=== PATIENT | female | born 1950 | race Caucasian/White ===

== ENCOUNTER → 2019-04-14 | Outpatient (CLI) | payer OTHER ==
[~2019-04-14] MED LIST: ALBU90OI INH; HYDR1TAB94 PO; METR500 PO; NEOM500 PO; Prednisone20 MG PO; SPACE CHAMBER1 EACH MC; Zithromax250 MG PO
[2019-04-16 15:07] LABS: HPV 16 Negative (Negative); HPV 18 Negative (Negative); HPV OTHER HR TYPES Negative (Negative)
== END | disposition home or self-care (01) ==
LOC: LAB SHORT 17:10 → LAB 17:10
PROVIDERS: Obstetrics & Gynecology Gynecology
DX: Z12.4 Encounter for screening for malignant neoplasm of cervix (principal)
CPT/HCPCS: 87624; G0123

== ENCOUNTER 2019-04-22 07:52 | Inpatient (IN) | payer OTHER ==
[~2019-04-22] VITALS: Ht 163 cm; Wt 43.8 kg
[~2019-04-22 07:52] MED LIST changes: -HYDR1TAB94 PO
--- NOTE | 2019-04-22 09:48 | NUR ---
Ambulatory in Day Surgery History, Chart, Medications and Allergies reviewed before start of procedure.Patient confirms NPO status and agrees with scheduled surgery. Patient states colon prep results clear. Patient reports completing Chlorhexadine shower X2 prior to admission to hospital.
--- NOTE | 2019-04-22 15:48 | NUR ---
"EMS INSTRUCTOR | VITAL SIGNS THIS RN RETURNED FROM THE FLOOR TO FINISH CHARTING VITAL SIGNS ON PATIENT, THE MONITOR WAS ACCIDENTLY CLEARED, THUS LOOSING APROXIMATELY 30 MINUTES OF VITAL SIGNS FROM THE MONITOR. THE PATIENTS VITAL SIGNS WERE STABLE THROUGHOUT THEIR STAY IN PACU AND UPON TRANSFER TO FLOOR."
--- NOTE | 2019-04-22 16:19 | NUR ---
ARRIVAL TO UNIT S/P R HEMICOLECTOMY + ENDOMETRIALPOLYPECTOMY. POST OP VS STABLE AND IN PROGRESS. EPIDURAL IN PLACE AND SITE TO MIDBACK IS CDI. DERMATOMES T9-L3 BUT PT ABLE TO WIGGLE TOES AND FLEX FEET. PT REPORTS PAIN IS GETTING MORE TOLERABLE AFTER TITRATING DOSE. PREVENA WOUND VAC TO MID ABD IS CDI. OWENS PATENT WITH CLEAR YELLOW URINE. IVF INFUSING PER ORDERS. OFFERING ICE CHIPS AND WATER. ORIENTED TO ROOM AND CALL LIGHT WITHIN REACH.
--- NOTE | 2019-04-23 02:40 | NUR ---
BLOOD PRESSURE REMAINING IN LOW 90'S FOR SYSTOLIC. EPIDURAL RATE DECREASED BACK DOWN TO 10ML/HR PER ORDERS.
[2019-04-23 03:51] LABS: BASOPHILS ABSOLUTE AUTO 0.02 K/mm3 (0.00-0.23); BASOPHILS PERCENT AUTO 0 % (0-2); EOSINOPHILS ABSOLUTE AUTO 0.06 K/mm3 (0.00-0.68); EOSINOPHILS PERCENT AUTO 1 % (0-6); Hematocrit 28.1 % (33.0-51.0); Hemoglobin 8.3 g/dL (11.5-16.0); IMMATURE GRAN ABSOLUTE AUTO 0.03 K/mm3 (0.00-0.10); IMMATURE GRAN PERCENT AUTO 0 % (0-1); LYMPHOCYTES ABSOLUTE AUTO 1.96 K/mm3 (0.84-5.20); LYMPHOCYTES PERCENT AUTO 19 % (21-46); MONOCYTES ABSOLUTE AUTO 1.01 K/mm3 (0.16-1.47); MONOCYTES PERCENT AUTO 10 % (4-13); Mean Corpuscular HGB 21.2 pg (26.0-34.0); Mean Corpuscular HGB Conc 29.5 g/dL (31.5-36.5); Mean Corpuscular Volume 72 fL (80-100); Mean Platelet Volume 9.2 fL (9.1-12.4); NEUTROPHILS ABSOLUTE AUTO 7.11 K/mm3 (1.96-9.15); NEUTROPHILS PERCENT AUTO 70 % (41-73); Platelet Count 416 K/mm3 (150-400); RDW Coefficient Variation 17.5 % (11.7-14.2); RDW Standard Deviation 45.2 fL (35.1-46.3); Red Blood Cell Count 3.91 M/mm3 (3.80-5.20); White Blood Cell Count 10.19 K/mm3 (4.00-11.30)
[2019-04-23 04:05] LABS: Anion Gap 8 mmol/L (6-16); Blood Urea Nitrogen 11 mg/dL (8-24); Bun/Creatinine Ratio 11.7 (12.0-20.0); CO2, Blood 23 mmol/L (21-32); Calcium, Blood 7.8 mg/dL (8.5-10.1); Chloride, Blood 110 mmol/L (98-108); Creatinine, Blood 0.94 mg/dL (0.40-1.00); Glomerular Filtration Rate >60 (60-); Glucose, Blood 71 mg/dL (70-99); Potassium, Blood 3.8 mmol/L (3.5-5.5); Sodium, Blood 141 mmol/L (136-145)
--- NOTE | 2019-04-23 04:49 | NUR ---
SHIFT SUMMARY: PT POD #1 FOR RIGHT ALPHONSE COLECTOMY AND ENDOMETRIAL POLYPECTOMY. A&O X4 T/O SHIFT. EPIDURAL TO MID BACK CDI. PT RATING PAIN 0/10. BP LOW T/O SHIFT- DOSE TITRATED BACK DOWN TO 10ML/HR PER TITRATING ORDERS. PT REPORTS N/T IN BILATERAL FEET. PT REPORTS MORE STRENGTH IN RIGHT LEG. ABLE TO WIGGLE TOES. O2 STABLE ON ROOM AIR. PT MICKY CLEAR LIQ DIET. DENIES N/V. DENIES PASSING FLATUS. FLUIDS INFUSING PER ORDERS. MINIMAL AMOUNT OF URINE NOTED IN OWENS. SEDIMENT OBSERVED IN CATHETER. IRRIGATED WITH 30CC. OWENS NOW DRAINING ADEQUATE AMOUNT.
--- NOTE | 2019-04-23 07:33 | NUR ---
04/23/19 0733 Olga Tucker VERIFICATIONS: EDIT CHART.
--- NOTE | 2019-04-23 17:44 | NUR ---
SUMMARY PATIENT REPORTS NO PAIN, ONLY SLIGHT ABDOMINAL "DISCOMFORT". EPIDURAL TAPED IN PLACE. PATIENT MOVES BILATERAL LOWER LEGS BUT REPORTS LEFT LEG FEELS SLIGHTLY WEAKER THAN RIGHT. PATIENT MEDICATED X1 FOR NAUSEA WITH GOOD RELIEF. TOLERATING CLEAR LIQUIDS. PATIENT BELCHING OCCASSIONALLY. PREVENA IN PLACE MIDLINE, DRESSING DRY AND INTACT
--- NOTE | 2019-04-24 00:47 | NUR ---
PT ON CONT EPIDURAL FENT 10 MCG HR AND BUPIVICANE CONTINUES TO DENY PAIN, GOOD STRENGHTS BILAT LE SLIGHT TINGLING ABLE TO MOVE WELL. hAS T 100.4 AND ENCOURAGED IS AND COUGH DEEP BREATHE. DOES IS POORLY ONLY ABLE TO GET TO LOW LEVEL. SATS 86% ON ROOM AIR, OXYGEN 2 L NC APPLIED. WILL APPLY CONT PULSE OXIMETER FOR CONTINOUS EPIDURAL.
--- NOTE | 2019-04-24 05:43 | NUR ---
68 YEAR OLD fEMALE WITH RT HEMICOLECTOMY FOR INTUSSCEPTION AND POLYPS UTERINE WITH PT REPORTING BENIGN FINDINGS. PT WILL BE ADVANCEd FROM CLEAR LIQUID TO FULL LIQUID THIS am. She has hx of anemia and malnutrition with wt loss. She has been a smoker and has poor lung function. Room air sats below 88%. 2 l nc and sats 93%. Poor use of incentive spirometry. encouraged CDB wak cough. Bowel sounds active. Woods cath patent, epidural fent 10 mcg per hour with bupivicane 0.1 infusing per epidural with good return of LE strenght and use. Epidural checks per protocol.
--- NOTE | 2019-04-24 18:28 | NUR ---
SHIFT SUMMARY PAIN HAS BEEN MANAGED WITH EPIDURAL THIS SHIFT. PT HAS BEEN OOB TO CHAIR FOR MEALS. PT TOLERATING FULL LIQUIDS. PLAN EPIDURAL REMOVAL TOMORROW. VSS. WILL MONITOR UNTIL REPORT TO ONCOMING RN.
--- NOTE | 2019-04-25 06:31 | NUR ---
POD 3 S/P ALPHONSE COLECTOMY, PT VSS T/O NIGHT. DRESSING CDI. PAIN MGD W/EPIDURAL W/REP RELIEF. PT HAD NO C/O N/V, REP NO FLATUS YET. PT CONT TO C/O N/T TO BLE R/T EPIDURAL, REP NO CHANGES IN SENSATION. PT UP W/FWW+2 ASSIST R/T WEAKNESS/NUMBNESS IN BLE. PLAN TO D/C EPIDURAL THIS AM. PT USING CALL LIGHT FOR ASSISTANCE, WILL CONT TO MONITOR UNTIL REP GIVEN TO ONCOMING RN.
--- NOTE | 2019-04-25 08:10 | NUR ---
DERMATOME LEVELS PT REPORTS SHE IS HAVING ADEQUATE PAIN MANAGEMENT. PT REPORTED NUMBNESS/TINGLING TO BLE. PT REPORTS MORE NUMBNESS TO HER L LEG THAN HER R LEG. PT IS ABLE TO MOVE HER EXTREMITIES. SHE REPORTS FEELING WEAK WHEN ATTEMPTING TO STAND. PT REMAINING IN BED R/T LOWER EXTREMITY NUMBNESS UNTIL ANESTHESIOLOGIST REMOVES EPIDURAL.
--- NOTE | 2019-04-25 11:32 | NUR ---
DR. IRAIDA STEVEN WILL CONTINUE TO MONITOR.
--- NOTE | 2019-04-25 13:15 | NUR ---
DR. YOON ROUNDED AND REMOVED EPIDURAL CATHETER. PT REPORTS PAIN IS MANAGED AND NUMBNESS IS DECREASING IN BLE. WILL CONTINUE TO MONITOR. EPIDURAL PUMP TURNED OFF AT APPROXIMATLY 1100.
--- NOTE | 2019-04-25 19:02 | NUR ---
SHIFT SUMMARY EPIDURAL REMOVED EARLY THIS AFTERNOON. PT HAS HAD MINIMAL PAIN SINCE EPIDURAL REMOVAL; TORADOL GIVEN X1 FOR PAIN. PT IS A 1 PERSON ASSIST WITH GAIT BELT AND WALKER. PT WAS UNABLE TO AMBULATE PRIOR TO EPIDURAL REMOVAL R/T NUMBNESS TO BLE. PT IS TOLERATING REGULAR DIET. VSS. REPORT GIVEN TO BRANDEN GARCIA.
--- NOTE | 2019-04-26 06:30 | NUR ---
SHIFT SUMMARY LYING IN SEMI FOWLERS WITH EYES CLOSED. HAS RESTED WELL THIS SHIFT. ADEQUATE OUTPUT SINCE REMOVAL OF EPIDURAL AND OWENS CATH. RETURN OF BASELINE SENSATION NOTED. DENIES PAIN, DISCOMFORT, OR FURTHER NEEDS AT THIS TIME. SAFETY MEASURES IN PLACE. WILL GIVE HAND OFF TO ONCOMING SHIFT USING SBAR.
[2019-04-26] MEDS ORDERED: HYDR1TAB94 PO (10:56)
== END 2019-04-26 12:51 | disposition home or self-care (01) | DRG 330 ==
LOC: SURS 07:52 → PRE IP 09:45 → SURS 15:09
PROVIDERS: Obstetrics & Gynecology Gynecology; ADMIT Surgery
PROC: 0DTF0ZZ Resection of Right Large Intestine, Open Approach (ICD-10-PCS; 2019-04-22)
PROC: 0UDB8ZX Extraction of Endometrium, Via Natural or Artificial Opening Endoscopic, Diagnostic (ICD-10-PCS; principal; 2019-04-22 09:45)
PROC: 0UDB8ZX Extraction of Endometrium, Via Natural or Artificial Opening Endoscopic, Diagnostic (ICD-10-PCS; 2019-04-22 09:45)
DX: K56.1 Intussusception (principal); E44.0 Moderate protein-calorie malnutrition; Z68.1 Body mass index [BMI] 19.9 or less, adult; N84.0 Polyp of corpus uteri; D64.9 Anemia, unspecified; F17.210 Nicotine dependence, cigarettes, uncomplicated
CPT/HCPCS: 36415; 80048; 85025; 88305; 88309; 94762; J0330; J1650; J1885; J2250; J2405; J2543; J2704; J2710; J3010; J7120; V2790

== ENCOUNTER 2019-05-21 05:58 | Day surgery (SDC) | payer OTHER ==
[~2019-05-21] VITALS: Ht 160 cm; Wt 46.4 kg
[~2019-05-21 05:58] MED LIST changes: +HYDR1TAB94 PO
--- NOTE | 2019-05-21 06:38 | NUR ---
Exp. Rhonchi auscultated to RUL anterior and LLL anterior, clear with cough.
--- NOTE | 2019-05-21 06:38 | NUR ---
History, Chart, Medications and Allergies reviewed before start of procedure. Patient confirms NPO status and agrees with scheduled surgery. Patient States Post-Procedure ride home has been arranged with her .
--- NOTE | 2019-05-21 06:39 | NUR ---
IRON AND PREDNISONE REMOVED FROM ALLERGY LIST PER PATIENT REQUEST. SHE DENIES ALLERGIES TO BOTH IRON AND PREDNISONE.
--- NOTE | 2019-05-21 09:35 | NUR ---
Patient up to Ambulate independently. Gait steady. Discharge instructions reviewed with patient. Patient verbalizes understanding. Copy given to patient to take home. Patient States Post-Procedure ride home has been arranged. Discharged via wheelchair to private car for ride home.
== END 2019-05-21 22:38 | disposition home or self-care (01) ==
LOC: ORSCMMR 05:58 → ORD 07:30 → ORSCMMR 22:38
PROVIDERS: Surgery
PROC: 05HM33Z Insertion of Infusion Device into Right Internal Jugular Vein, Percutaneous Approach (ICD-10-PCS; principal; 2019-05-21 07:30)
PROC: B5131ZA Fluoroscopy of Right Jugular Veins using Low Osmolar Contrast, Guidance (ICD-10-PCS; principal; 2019-05-21 07:30)
DX: C18.2 Malignant neoplasm of ascending colon (principal); J44.9 Chronic obstructive pulmonary disease, unspecified; F17.210 Nicotine dependence, cigarettes, uncomplicated
CPT/HCPCS: 77001; C1788; J0690; J1100; J1642; J2250; J2405; J2704; J3010; J7120

== ENCOUNTER 2019-11-11 13:54 | Emergency (ER) | payer OTHER ==
[~2019-11-11] VITALS: Ht 162.6 cm; Wt 47.6 kg
[2019-11-11 14:32] LABS: BASOPHILS ABSOLUTE AUTO 0.05 K/mm3 (0.00-0.23); BASOPHILS PERCENT AUTO 0 % (0-2); EOSINOPHILS ABSOLUTE AUTO 0.04 K/mm3 (0.00-0.68); EOSINOPHILS PERCENT AUTO 0 % (0-6); Hematocrit 47.5 % (33.0-51.0); Hemoglobin 15.4 g/dL (11.5-16.0); IMMATURE GRAN ABSOLUTE AUTO 0.05 K/mm3 (0.00-0.10); IMMATURE GRAN PERCENT AUTO 0 % (0-1); LYMPHOCYTES ABSOLUTE AUTO 2.53 K/mm3 (0.84-5.20); LYMPHOCYTES PERCENT AUTO 22 % (21-46); MONOCYTES ABSOLUTE AUTO 1.65 K/mm3 (0.16-1.47); MONOCYTES PERCENT AUTO 14 % (4-13); Mean Corpuscular HGB 32.2 pg (26.0-34.0); Mean Corpuscular HGB Conc 32.4 g/dL (31.5-36.5); Mean Corpuscular Volume 99 fL (80-100); Mean Platelet Volume 10.4 fL (9.1-12.4); NEUTROPHILS ABSOLUTE AUTO 7.28 K/mm3 (1.96-9.15); NEUTROPHILS PERCENT AUTO 63 % (41-73); Platelet Count 117 K/mm3 (150-400); RDW Coefficient Variation 15.1 % (11.7-14.2); RDW Standard Deviation 55.6 fL (35.1-46.3); Red Blood Cell Count 4.78 M/mm3 (3.80-5.20)
[2019-11-11 15:00] LABS: Alanine Aminotransfer (ALT/SGP 28 U/L (12-78); Albumin, Blood 3.4 g/dL (3.4-5.0); Albumin/Globulin Ratio 0.8 (0.8-1.8); Alk Phos 172 U/L (50-136); Anion Gap 6 mmol/L (6-16); Aspartate Aminotrans (AST/SGOT 28 U/L (12-37); Bilirubin, Total 0.5 mg/dL (0.1-1.0); Blood Urea Nitrogen 13 mg/dL (8-24); Bun/Creatinine Ratio 17.6 (12.0-20.0); CO2, Blood 24 mmol/L (21-32); Calcium, Blood 8.7 mg/dL (8.5-10.1); Chloride, Blood 110 mmol/L (98-108); Creatinine, Blood 0.74 mg/dL (0.40-1.00); Globulin, Blood 4.3 g/dL (2.2-4.0); Glomerular Filtration Rate >60 (60-); Glucose, Blood 88 mg/dL (70-99); Potassium, Blood 3.9 mmol/L (3.5-5.5); Sodium, Blood 140 mmol/L (136-145); Total Protein, Blood 7.7 g/dL (6.4-8.2); Troponin I <0.015 ng/mL (0.000-0.040)
[2019-11-11] MEDS ORDERED: Norco 5-325 Ta1 EACH PO (16:28)
[2019-11-11] MEDS ORDERED: XARELTO15 MG PO (16:28)
== END 2019-11-11 17:26 | disposition home or self-care (01) ==
LOC: ER 13:54
PROVIDERS: Physician Assistant
DX: I26.99 Other pulmonary embolism without acute cor pulmonale (principal); I27.82 Chronic pulmonary embolism; F17.210 Nicotine dependence, cigarettes, uncomplicated
CPT/HCPCS: 71046; 71260; 80053; 84484; 85025; 93005; 93010; 96374-59; 99285-25; J1885; Q9967

== ENCOUNTER → 2020-02-24 | Outpatient (CLI) | payer OTHER ==
[~2020-02-24] MED LIST changes: +Norco 5-325 Ta1 EACH PO; +XARELTO15 MG PO
[2020-02-24 20:23] LABS: Campylobacter Sp Not Detected (NOT DETECT)
[2020-02-24 20:24] LABS: Adenovirus F 40/41 Not Detected (NOT DETECT); Astrovirus Not Detected (NOT DETECT); Cryptosporidium Not Detected (NOT DETECT); Cyclospora Cayetanensis Not Detected (NOT DETECT); E. Coli O157 Not Detected (NOT DETECT); Entamoeba Histolytica Not Detected (NOT DETECT); Enteroaggregative E. coli-EAEC Not Detected (NOT DETECT); Enteropathogenic E. coli-EPEC Detected (NOT DETECT); Enterotoxigenic E. coli-ETEC Not Detected (NOT DETECT); Giardia Lamblia Not Detected (NOT DETECT); Norovirus GI/GII Not Detected (NOT DETECT); Plesiomonas Shigelloides Not Detected (NOT DETECT); Rotavirus A Not Detected (NOT DETECT); Salmonella Sp Not Detected (NOT DETECT); Sapovirus Not Detected (NOT DETECT); Shiga Toxin-prod E. coli-STEC Not Detected (NOT DETECT); Shigella/Enteroin E. coli-EIEC Not Detected (NOT DETECT); Vibrio Cholerae Not Detected (NOT DETECT); Vibrio Sp Not Detected (NOT DETECT); Yersinia Enterocolitica Not Detected (NOT DETECT)
== END | disposition home or self-care (01) ==
LOC: LAB 12:50 → LAB SHORT 12:50
PROVIDERS: Internal Medicine Gastroenterology
DX: R19.7 Diarrhea, unspecified (principal)
CPT/HCPCS: 0097U; 83993

== ENCOUNTER 2020-11-10 08:55 | Day surgery (SDC) | payer OTHER ==
[~2020-11-10] VITALS: Ht 165.1 cm; Wt 45.2 kg
--- NOTE | 2020-11-10 10:07 | NUR ---
11/10/20 Amber Jovel 1 TRY RIGHT HAND VALVE 2 TRY RIGHT UPPER ARM INFLATRATED
--- NOTE | 2020-11-10 12:07 | NUR ---
11/10/[address] TO CALL IN RX FOR PT. FOR PREDISONE.
== END 2020-11-10 11:40 | disposition home or self-care (01) ==
LOC: ORSCSDS 08:55
PROVIDERS: Internal Medicine Gastroenterology
PROC: 0DBL8ZX Excision of Transverse Colon, Via Natural or Artificial Opening Endoscopic, Diagnostic (ICD-10-PCS; principal; 2020-11-10 10:45)
PROC: 0DBP8ZX Excision of Rectum, Via Natural or Artificial Opening Endoscopic, Diagnostic (ICD-10-PCS; principal; 2020-11-10 10:45)
PROC: 0DBG8ZX Excision of Left Large Intestine, Via Natural or Artificial Opening Endoscopic, Diagnostic (ICD-10-PCS; principal; 2020-11-10 10:45)
PROC: 0DBB8ZX Excision of Ileum, Via Natural or Artificial Opening Endoscopic, Diagnostic (ICD-10-PCS; principal; 2020-11-10 10:45)
DX: K50.90 Crohn's disease, unspecified, without complications (principal); K64.4 Residual hemorrhoidal skin tags; K64.8 Other hemorrhoids; R19.7 Diarrhea, unspecified; Z85.038 Personal history of other malignant neoplasm of large intestine; Z86.010 Personal history of colon polyps; F17.210 Nicotine dependence, cigarettes, uncomplicated; Z79.01 Long term (current) use of anticoagulants; Z79.899 Other long term (current) drug therapy
CPT/HCPCS: 88305; 88312; J2704; J7120

== ENCOUNTER → 2021-05-09 | Outpatient (CLI) | payer OTHER ==
[2021-05-09 18:43] LABS: BASOPHILS ABSOLUTE AUTO 0.08 K/mm3 (0.00-0.23); BASOPHILS PERCENT AUTO 1 % (0-2); EOSINOPHILS ABSOLUTE AUTO 0.11 K/mm3 (0.00-0.68); EOSINOPHILS PERCENT AUTO 2 % (0-6); Hematocrit 45.1 % (33.0-51.0); Hemoglobin 14.6 g/dL (11.5-16.0); IMMATURE GRAN ABSOLUTE AUTO 0.04 K/mm3 (0.00-0.10); IMMATURE GRAN PERCENT AUTO 1 % (0-1); LYMPHOCYTES ABSOLUTE AUTO 1.85 K/mm3 (0.84-5.20); LYMPHOCYTES PERCENT AUTO 24 % (21-46); MONOCYTES ABSOLUTE AUTO 0.72 K/mm3 (0.16-1.47); MONOCYTES PERCENT AUTO 10 % (4-13); Mean Corpuscular HGB 31.5 pg (26.0-34.0); Mean Corpuscular HGB Conc 32.4 g/dL (31.5-36.5); Mean Corpuscular Volume 97 fL (80-100); Mean Platelet Volume 10.6 fL (9.1-12.4); NEUTROPHILS ABSOLUTE AUTO 4.78 K/mm3 (1.96-9.15); NEUTROPHILS PERCENT AUTO 63 % (41-73); Platelet Count 299 K/mm3 (150-400); RDW Coefficient Variation 15.2 % (11.7-14.2); RDW Standard Deviation 54.5 fL (35.1-46.3); Red Blood Cell Count 4.64 M/mm3 (3.80-5.20); White Blood Cell Count 7.58 K/mm3 (4.00-11.30)
[2021-05-09 19:17] LABS: Alanine Aminotransfer (ALT/SGP 23 U/L (12-78); Albumin, Blood 3.8 g/dL (3.4-5.0); Albumin/Globulin Ratio 0.9 (0.8-1.8); Alk Phos 81 U/L (50-136); Anion Gap 5 mmol/L (6-16); Aspartate Aminotrans (AST/SGOT 17 U/L (12-37); Bilirubin, Total 0.4 mg/dL (0.1-1.0); Blood Urea Nitrogen 14 mg/dL (8-24); Bun/Creatinine Ratio 18.5 (12.0-20.0); CO2, Blood 26 mmol/L (21-32); Calcium, Blood 9.3 mg/dL (8.5-10.1); Chloride, Blood 108 mmol/L (98-108); Creatinine, Blood 0.76 mg/dL (0.40-1.00); Globulin, Blood 4.1 g/dL (2.2-4.0); Glomerular Filtration Rate >60 (60-); Glucose, Blood 81 mg/dL (70-99); Potassium, Blood 4.2 mmol/L (3.5-5.5); Sodium, Blood 139 mmol/L (136-145); Thyroxine (T4) 11.1 ug/dL (4.8-13.9); Total Protein, Blood 7.9 g/dL (6.4-8.2)
[2021-05-09 19:24] LABS: Thyroid Stimulating Hormone 0.907 uIU/mL (0.360-4.800)
== END | disposition home or self-care (01) ==
LOC: LAB SHORT 15:21 → LAB 15:21
PROVIDERS: Family Medicine
DX: E03.9 Hypothyroidism, unspecified (principal); R53.83 Other fatigue
CPT/HCPCS: 80053; 84436; 84443; 85025

== ENCOUNTER 2021-07-20 05:44 | Day surgery (SDC) | payer OTHER ==
[~2021-07-20] VITALS: Wt 45.7 kg
[2021-07-20] MEDS ORDERED: Azasan100 MG (13:48)
[2021-07-20] MEDS ORDERED: PRED5 PO (13:49)
== END 2021-07-20 16:15 | disposition home or self-care (01) ==
LOC: ATC 05:44
DX: K50.90 Crohn's disease, unspecified, without complications (principal); F17.210 Nicotine dependence, cigarettes, uncomplicated; Z23 Encounter for immunization; Z90.49 Acquired absence of other specified parts of digestive tract; Z79.52 Long term (current) use of systemic steroids; Z79.899 Other long term (current) drug therapy; Z79.01 Long term (current) use of anticoagulants; Z85.038 Personal history of other malignant neoplasm of large intestine
CPT/HCPCS: 96375; 96413; 96415; A9270; J1720; J1745; J7050

== ENCOUNTER 2021-08-03 03:05 | Day surgery (SDC) | payer OTHER ==
[~2021-08-03] VITALS: Wt 46.6 kg
[~2021-08-03 03:05] MED LIST changes: +Azasan100 MG; +PRED5 PO
--- NOTE | 2021-08-03 09:39 | NUR ---
PATIENT DECLINED PRE-MEDS SINCE SHE DID WELL WITH HER LAST INFUSION OF REMICADE.
== END 2021-08-03 11:42 | disposition home or self-care (01) ==
LOC: ATC 03:05
DX: K50.80 Crohn's disease of both small and large intestine without complications (principal); F17.210 Nicotine dependence, cigarettes, uncomplicated; Z85.038 Personal history of other malignant neoplasm of large intestine
CPT/HCPCS: J1745; J7050

== ENCOUNTER 2021-08-31 05:30 | Day surgery (SDC) | payer OTHER ==
[~2021-08-31] VITALS: Wt 47.2 kg
--- NOTE | 2021-08-31 09:28 | NUR ---
PT DECLINES PRE MEDS
== END 2021-08-31 11:34 | disposition home or self-care (01) ==
LOC: ATC 05:30
DX: K50.80 Crohn's disease of both small and large intestine without complications (principal); F17.210 Nicotine dependence, cigarettes, uncomplicated; Z79.01 Long term (current) use of anticoagulants; Z88.2 Allergy status to sulfonamides
CPT/HCPCS: J1745; J7050

== ENCOUNTER 2021-10-13 10:05 | Emergency (ER) | payer OTHER ==
[~2021-10-13] VITALS: Ht 165.1 cm; Wt 45.4 kg
[2021-10-13 11:38] LABS: BASOPHILS ABSOLUTE AUTO 0.05 K/mm3 (0.00-0.23); BASOPHILS PERCENT AUTO 1 % (0-2); EOSINOPHILS ABSOLUTE AUTO 0.05 K/mm3 (0.00-0.68); EOSINOPHILS PERCENT AUTO 1 % (0-6); Hematocrit 45.9 % (33.0-51.0); Hemoglobin 15.1 g/dL (11.5-16.0); IMMATURE GRAN ABSOLUTE AUTO 0.01 K/mm3 (0.00-0.10); IMMATURE GRAN PERCENT AUTO 0 % (0-1); LYMPHOCYTES ABSOLUTE AUTO 1.07 K/mm3 (0.84-5.20); LYMPHOCYTES PERCENT AUTO 19 % (21-46); MONOCYTES ABSOLUTE AUTO 1.07 K/mm3 (0.16-1.47); MONOCYTES PERCENT AUTO 19 % (4-13); Mean Corpuscular HGB 33.2 pg (26.0-34.0); Mean Corpuscular HGB Conc 32.9 g/dL (31.5-36.5); Mean Corpuscular Volume 101 fL (80-100); Mean Platelet Volume 9.9 fL (9.1-12.4); NEUTROPHILS ABSOLUTE AUTO 3.35 K/mm3 (1.96-9.15); NEUTROPHILS PERCENT AUTO 60 % (41-73); Platelet Count 204 K/mm3 (150-400); RDW Coefficient Variation 13.5 % (11.7-14.2); RDW Standard Deviation 50.6 fL (35.1-46.3); Red Blood Cell Count 4.55 M/mm3 (3.80-5.20)
[2021-10-13 11:56] LABS: Alanine Aminotransfer (ALT/SGP 21 U/L (12-78); Albumin, Blood 3.9 g/dL (3.4-5.0); Albumin/Globulin Ratio 0.8 (0.8-1.8); Alk Phos 63 U/L (50-136); Anion Gap 5 mmol/L (6-16); Aspartate Aminotrans (AST/SGOT 19 U/L (12-37); Blood Urea Nitrogen 9 mg/dL (8-24); Bun/Creatinine Ratio 12.1 (12.0-20.0); CO2, Blood 29 mmol/L (21-32); Calcium, Blood 9.5 mg/dL (8.5-10.1); Chloride, Blood 104 mmol/L (98-108); Creatinine, Blood 0.75 mg/dL (0.40-1.00); Globulin, Blood 4.6 g/dL (2.2-4.0); Glomerular Filtration Rate >60 (60-); Glucose, Blood 97 mg/dL (70-99); Potassium, Blood 3.9 mmol/L (3.5-5.5); Sodium, Blood 138 mmol/L (136-145); Total Protein, Blood 8.5 g/dL (6.4-8.2); Troponin I <0.015 ng/mL (0.000-0.040)
[2021-10-13] MEDS ORDERED: ALBU90OI INH (14:17)
[2021-10-13 14:42] LABS: Influenza A, PCR NEGATIVE (NEGATIVE); Influenza B, PCR NEGATIVE (NEGATIVE); Resp Syncytial Virus, PCR NEGATIVE (NEGATIVE); SARS-Cov-2 (COVID-19) PCR, MMC NEGATIVE (NEGATIVE)
== END 2021-10-13 14:31 | disposition home or self-care (01) ==
LOC: ER 10:05
PROVIDERS: Student in an Organized Health Care Education/Training Program
DX: R06.02 Shortness of breath (principal); R05.9 Cough, unspecified; Z88.2 Allergy status to sulfonamides; Z87.891 Personal history of nicotine dependence; Z20.822 Contact with and (suspected) exposure to COVID-19
CPT/HCPCS: 0241U; 71045; 80053; 83880; 84484; 85025; 93005; 93010; 94640; 99284-25

== ENCOUNTER 2021-10-26 02:24 | Day surgery (SDC) | payer OTHER ==
[~2021-10-26] VITALS: Wt 46.4 kg
== END 2021-10-26 11:43 | disposition home or self-care (01) ==
LOC: ATC 02:24
DX: K50.80 Crohn's disease of both small and large intestine without complications (principal)
CPT/HCPCS: A9270; J1720; J1745; J7050

== ENCOUNTER 2021-12-21 00:16 | Day surgery (SDC) | payer OTHER | END 2021-12-21 11:49 | disposition home or self-care (01) | LOC: ATC 00:16 | DX: K50.80 Crohn's disease of both small and large intestine without complications (principal); F17.210 Nicotine dependence, cigarettes, uncomplicated | CPT/HCPCS: A9270; J1720; J7050; Q5103 ==

== ENCOUNTER 2022-04-12 00:58 | Day surgery (SDC) | payer OTHER ==
[~2022-04-12] VITALS: Wt 45.9 kg
[~2022-04-12 00:58] MED LIST changes: +INFLECTRA100 MG IV; +NEURONTIN300 MG PO
== END 2022-04-12 11:46 | disposition home or self-care (01) ==
LOC: ATC 00:58
DX: K50.80 Crohn's disease of both small and large intestine without complications (principal)
CPT/HCPCS: 96413; 96415; J7050; Q5103

== ENCOUNTER 2022-07-01 09:18 | Day surgery (SDC) | payer OTHER ==
[~2022-07-01] VITALS: Ht 177.8 cm; Wt 45.5 kg
== END 2022-07-01 11:53 | disposition home or self-care (01) ==
LOC: ORSCSDS 09:18
PROVIDERS: Internal Medicine Gastroenterology
PROC: 0DBN8ZX Excision of Sigmoid Colon, Via Natural or Artificial Opening Endoscopic, Diagnostic (ICD-10-PCS; principal; 2022-07-01 10:45)
PROC: 0DBE8ZX Excision of Large Intestine, Via Natural or Artificial Opening Endoscopic, Diagnostic (ICD-10-PCS; principal; 2022-07-01 10:45)
DX: K50.90 Crohn's disease, unspecified, without complications (principal); Z86.010 Personal history of colon polyps; Z85.038 Personal history of other malignant neoplasm of large intestine; K63.5 Polyp of colon; K57.30 Diverticulosis of large intestine without perforation or abscess without bleeding; F17.210 Nicotine dependence, cigarettes, uncomplicated; Z79.899 Other long term (current) drug therapy; Z79.01 Long term (current) use of anticoagulants
CPT/HCPCS: 88305; J2704; J7120

== ENCOUNTER 2022-08-02 00:13 | Day surgery (SDC) | payer OTHER ==
[~2022-08-02] VITALS: Wt 48.0 kg
[2022-08-02] MEDS ORDERED: INFLECTRA100 MG IV (10:40)
[2022-08-02] MEDS ORDERED: PREG50 PO (10:41)
== END 2022-08-02 11:38 | disposition home or self-care (01) ==
LOC: ATC 00:13
DX: K50.80 Crohn's disease of both small and large intestine without complications (principal)
CPT/HCPCS: 96413; 96415; A9270; J1720; J7050; Q5103

== ENCOUNTER 2022-09-27 02:25 | Day surgery (SDC) | payer OTHER ==
[~2022-09-27 02:25] MED LIST changes: +PREG50 PO
== END 2022-09-27 11:40 | disposition home or self-care (01) ==
LOC: ATC 02:25
DX: K50.80 Crohn's disease of both small and large intestine without complications (principal)
CPT/HCPCS: J7050; Q5103

== ENCOUNTER 2023-01-17 01:42 | Day surgery (SDC) | payer OTHER ==
[~2023-01-17] VITALS: Wt 51.9 kg
[2023-01-17 09:03] VITALS: BP 127/74
== END 2023-01-17 11:53 | disposition home or self-care (01) ==
LOC: ATC 01:42
DX: K50.80 Crohn's disease of both small and large intestine without complications (principal)
CPT/HCPCS: 96413; 96415; J7050; Q5103

== ENCOUNTER 2023-05-12 01:19 | Day surgery (SDC) | payer OTHER ==
[2023-05-12 13:34] VITALS: BP 106/65
[2023-05-12] MEDS ORDERED: IMURAN50 MG PO (13:40)
[2023-05-12] MEDS ORDERED: DONEPEZIL HCL5 M2 PO (13:41)
== END 2023-05-12 16:22 | disposition home or self-care (01) ==
LOC: ATC 01:19
DX: K50.80 Crohn's disease of both small and large intestine without complications (principal)
CPT/HCPCS: 96413; 96415; J7050; Q5103

== ENCOUNTER 2023-07-09 02:23 | Day surgery (SDC) | payer OTHER ==
[~2023-07-09 02:23] MED LIST changes: +DONEPEZIL HCL5 M2 PO; +IMURAN50 MG PO
[2023-07-09 09:22] VITALS: BP 107/70
== END 2023-07-09 12:01 | disposition home or self-care (01) ==
LOC: ATC 02:23
DX: K50.80 Crohn's disease of both small and large intestine without complications (principal); Z88.2 Allergy status to sulfonamides; Z85.038 Personal history of other malignant neoplasm of large intestine
CPT/HCPCS: 96413; 96415; J7050; Q5103

== ENCOUNTER 2023-09-03 01:02 | Day surgery (SDC) | payer OTHER ==
[2023-09-03] MEDS ORDERED: Ventolin/Prove6.7 GM INH (09:02)
[2023-09-03 09:03] VITALS: BP 136/73
== END 2023-09-03 11:55 | disposition home or self-care (01) ==
LOC: ATC 01:02
DX: K50.80 Crohn's disease of both small and large intestine without complications (principal); Z79.899 Other long term (current) drug therapy; Z88.2 Allergy status to sulfonamides; Z85.038 Personal history of other malignant neoplasm of large intestine
CPT/HCPCS: 96413; 96415; J7050; Q5103

== ENCOUNTER 2023-10-29 00:03 | Day surgery (SDC) | payer OTHER ==
[~2023-10-29 00:03] MED LIST changes: +Ventolin/Prove6.7 GM INH
[2023-10-29] MEDS ORDERED: NS IV SCH (06:00)
[2023-10-29] MEDS ORDERED: INFLIXIMAB DYYB IV SCH (06:00)
[2023-10-29 13:50] VITALS: BP 149/71
== END 2023-10-29 16:30 | disposition home or self-care (01) ==
LOC: ATC 00:03
DX: K50.80 Crohn's disease of both small and large intestine without complications (principal); Z85.038 Personal history of other malignant neoplasm of large intestine
CPT/HCPCS: 96413; 96415; J7050; Q5103

== ENCOUNTER → 2024-03-27 | Outpatient (CLI) | payer OTHER | END | disposition home or self-care (01) | LOC: LAB 17:48 → LAB SHORT 17:48 | DX: R31.9 Hematuria, unspecified (principal); R30.0 Dysuria; R35.0 Frequency of micturition | CPT/HCPCS: 87086 ==

== ENCOUNTER → 2024-04-06 | Outpatient (CLI) | payer OTHER | LOC: LAB SHORT 17:32 → LAB 17:32 | DX: N39.0 Urinary tract infection, site not specified (principal) | CPT/HCPCS: 87086 ==

== ENCOUNTER 2024-06-17 02:33 | Day surgery (SDC) | payer OTHER ==
[~2024-06-17] VITALS: Wt 45.9 kg
[2024-06-17] MEDS ORDERED: INFLIXIMAB DYYB IV SCH (06:00)
[2024-06-17] MEDS ORDERED: NS IV SCH (06:00)
[2024-06-17 08:55] VITALS: BP 138/78
== END 2024-06-17 11:35 | disposition home or self-care (01) ==
LOC: ATC 02:33
DX: K50.80 Crohn's disease of both small and large intestine without complications (principal); F17.210 Nicotine dependence, cigarettes, uncomplicated; Z85.038 Personal history of other malignant neoplasm of large intestine; Z79.899 Other long term (current) drug therapy; Z88.2 Allergy status to sulfonamides
CPT/HCPCS: 96413; 96415; J7050; Q5103

== ENCOUNTER 2024-08-13 04:20 | Day surgery (SDC) | payer OTHER ==
[2024-08-13] MEDS ORDERED: INFLIXIMAB DYYB IV SCH (06:00)
[2024-08-13] MEDS ORDERED: NS IV SCH (06:00)
[2024-08-13 08:35] VITALS: BP 115/72
== END 2024-08-13 11:10 | disposition home or self-care (01) ==
LOC: ATC 04:20
DX: K50.80 Crohn's disease of both small and large intestine without complications (principal); F17.210 Nicotine dependence, cigarettes, uncomplicated; Z79.899 Other long term (current) drug therapy; Z88.2 Allergy status to sulfonamides; Z98.51 Tubal ligation status; Z90.710 Acquired absence of both cervix and uterus; Z90.49 Acquired absence of other specified parts of digestive tract; Z85.038 Personal history of other malignant neoplasm of large intestine
CPT/HCPCS: 96413; 96415; J7050; Q5103

== ENCOUNTER 2024-10-08 02:51 | Day surgery (SDC) | payer OTHER ==
[~2024-10-08] VITALS: Wt 45.9 kg
[2024-10-08] MEDS ORDERED: INFLIXIMAB DYYB IV SCH (06:00)
[2024-10-08] MEDS ORDERED: NS IV SCH (06:00)
[2024-10-08 09:07] VITALS: BP 124/65
[2024-10-08] MEDS ORDERED: TUMS500 MG PO (09:48)
[2024-10-08] MEDS ORDERED: ARTIFICIAL TEAR15 M2 BOTHEYES (09:49)
[2024-10-08] MEDS ORDERED: MAGNESIUM OXID500 MG PO (09:50)
[2024-10-08] MEDS ORDERED: PREVAGEN PO (09:52)
[2024-10-08] MEDS ORDERED: Primidone50 MG PO (09:52)
[2024-10-08] MEDS ORDERED: STIOLTO RESPIMAT4 G1 INH (09:53)
[2024-10-08] MEDS ORDERED: THERA-D2000 UNIT PO (09:53)
== END 2024-10-08 11:45 | disposition home or self-care (01) ==
LOC: ATC 02:51
DX: K50.80 Crohn's disease of both small and large intestine without complications (principal); F17.210 Nicotine dependence, cigarettes, uncomplicated; Z79.899 Other long term (current) drug therapy; Z88.2 Allergy status to sulfonamides
CPT/HCPCS: 96413; 96415; J7050; Q5103

== ENCOUNTER 2024-12-03 03:41 | Day surgery (SDC) | payer OTHER ==
[~2024-12-03] VITALS: Wt 45.2 kg
[~2024-12-03 03:41] MED LIST changes: +ARTIFICIAL TEAR15 M2 BOTHEYES; +MAGNESIUM OXID500 MG PO; +PREVAGEN PO; +Primidone50 MG PO; +STIOLTO RESPIMAT4 G1 INH; +THERA-D2000 UNIT PO; +TUMS500 MG PO
[2024-12-03] MEDS ORDERED: INFLIXIMAB DYYB IV SCH (06:00)
[2024-12-03] MEDS ORDERED: NS IV SCH (06:00)
[2024-12-03 14:20] VITALS: BP 133/88
== END 2024-12-03 16:29 | disposition home or self-care (01) ==
LOC: ATC 03:41
DX: K50.80 Crohn's disease of both small and large intestine without complications (principal); F03.90 Unspecified dementia, unspecified severity, without behavioral disturbance, psychotic disturbance, mood disturbance, and anxiety; F17.210 Nicotine dependence, cigarettes, uncomplicated; Z88.2 Allergy status to sulfonamides; Z85.038 Personal history of other malignant neoplasm of large intestine; Z79.899 Other long term (current) drug therapy
CPT/HCPCS: 96413; 96415; J7050; Q5103

== ENCOUNTER → 2024-12-10 | Outpatient (CLI) | payer OTHER ==
[2024-12-10 15:08] LABS: Source, Urine Clean Catch
[2024-12-10 16:07] LABS: Appearance, Urine Clear (Clear); Bilirubin, Urine Neg (Neg); Blood, Urine Neg (Neg); Glucose Qualitative, Urine Neg (Neg); Ketones, Urine Neg (Neg); Leukocyte Esterase, Urine Neg (Neg); Nitrite, Urine Neg (Neg); Protein, Urine Neg (Neg); Specific Gravity, Urine 1.005 (1.003-1.022); Urobilinogen, Urine NORM (Normal)
[2024-12-10 16:15] LABS: Color, Urine Pale Yellow (P-Yellow)
== END ==
LOC: LAB SHORT 10:00 → LAB 10:00
PROVIDERS: Physician Assistant
DX: N39.0 Urinary tract infection, site not specified (principal)
CPT/HCPCS: 81003

== ENCOUNTER 2025-02-14 03:51 | Day surgery (SDC) | payer OTHER ==
[~2025-02-14 03:51] MED LIST changes: +INFLIXIMAB DYYB IV SCH; +NS IV SCH
[2025-02-14 14:49] VITALS: BP 136/82
== END 2025-02-14 17:19 | disposition home or self-care (01) ==
LOC: ATC 03:51
DX: K50.80 Crohn's disease of both small and large intestine without complications (principal); F03.90 Unspecified dementia, unspecified severity, without behavioral disturbance, psychotic disturbance, mood disturbance, and anxiety; F17.210 Nicotine dependence, cigarettes, uncomplicated; Z85.038 Personal history of other malignant neoplasm of large intestine; Z79.624 Long term (current) use of inhibitors of nucleotide synthesis; Z79.899 Other long term (current) drug therapy; Z88.2 Allergy status to sulfonamides; Z90.49 Acquired absence of other specified parts of digestive tract
CPT/HCPCS: 96413; 96415; J7050; Q5103